=== PATIENT | female | born 1995 | race African-American/Black ===

== ENCOUNTER → 2020-02-25 | Outpatient (CLI) | payer OTHER ==
[2020-02-25 09:22] LABS: BASOPHILS % (AUTO) 1 % (0-1); EOSINOPHILS % (AUTO) 1 % (1-7); LYMPHOCYTES % (AUTO) 34 % (22-44); MEAN CORPUSCULAR HGB CONC 33.5 g/dL (32.4-35.8); MEAN PLATELET VOLUME 8.1 fL (7.4-10.4); MONOCYTES % (AUTO) 6 % (2-9); NEUTROPHILS % (AUTO) 58 % (42-75); PLATELET COUNT 266 x10^3/uL (130-400); RED BLOOD COUNT 4.31 x10^6/uL (3.82-5.3); RED CELL DISTRIBUTION WIDTH 12.6 % (9.6-15.2)
[2020-02-25 09:34] LABS: MD NO
== END | disposition home or self-care (01) ==
LOC: STAR 07:59
PROVIDERS: ATTEND Obstetrics & Gynecology
DX: Z01.812 Encounter for preprocedural laboratory examination (principal); R10.2 Pelvic and perineal pain; G89.29 Other chronic pain; N93.8 Other specified abnormal uterine and vaginal bleeding; Z20.828 Contact with and (suspected) exposure to other viral communicable diseases
CPT/HCPCS: 84703; 85025; 87635

== ENCOUNTER 2020-03-02 11:25 | Day surgery (SDC) | payer OTHER ==
[~2020-03-02] VITALS: Ht 172.7 cm; Wt 59.9 kg
[2020-03-02] MEDS ORDERED: BUPIVACAINE/PF 0.25% ONE (11:34)
[2020-03-02] MEDS ORDERED: EPINEPHRINE 1 MG/ML, 1ML ONE (11:35)
[2020-03-02] MEDS ORDERED: MISOPROSTOL 200 MCG TABLET ONE (11:35)
[2020-03-02] MEDS ORDERED: METHYLERGONOVINE 0.2 MG/ML IM ONE (11:35)
[2020-03-02] MEDS ORDERED: OXYTOCIN 10 UNITS/ML, 1ML ONE (11:35)
[2020-03-02] MEDS ORDERED: SILVER NITRATE STICK TP ONE (11:37)
[2020-03-02] MEDS ORDERED: METHYLENE BLUE 50 MG/10 ML AMP ONE (11:46)
[2020-03-02] MEDS ORDERED: GABAPENTIN 300 MG CAPSULE PO ONE (12:00)
[2020-03-02] MEDS ORDERED: PHENAZOPYRIDINE 200 MG TABLET PO ONE (12:00)
[2020-03-02] MEDS ORDERED: ACETAMINOPHEN 500 MG TABLET PO ONE (12:00)
[2020-03-02 12:04] VITALS: BP 122/84
[2020-03-02 12:12] LABS: HCG UR SG 1.034 (1.003-1.030)
[2020-03-02] MEDS: LACTATED RINGERS 1,000 ML IV SCH ×2 (12:24→16:10)
[2020-03-02] MEDS ORDERED: CHLORHEXIDINE 15 ML UDC MM ONE (12:30)
[2020-03-02] MEDS ORDERED: FENTANYL PF 250 MCG/5ML ONE (12:31)
[2020-03-02] MEDS ORDERED: MIDAZOLAM 1 MG/ML, 2ML ONE (12:31)
[2020-03-02] MEDS ORDERED: ONDANSETRON 2MG/ML, 2ML ONE (12:52)
[2020-03-02] MEDS ORDERED: PROPOFOL 10 MG/ML, 20ML ONE (12:52)
[2020-03-02] MEDS ORDERED: CEFAZOLIN 1,000 MG ONE (12:52)
[2020-03-02] MEDS ORDERED: ROCURONIUM 10 MG/ML,10ML ONE (12:52)
[2020-03-02] MEDS ORDERED: NEOSTIGMINE 1 MG/ML, 10ML ONE (12:52)
[2020-03-02] MEDS ORDERED: DEXAMETHASONE 4 MG/ML, 1ML ONE (12:52)
[2020-03-02] MEDS ORDERED: GLYCOPYRROLATE 0.2MG/1ML, 5ML ONE (12:52)
[2020-03-02] MEDS ORDERED: KETOROLAC 30 MG/1 ML IV ONE (13:30)
[2020-03-02] MEDS ORDERED: ACETAMINOPHEN 325 MG TABLET PO PRN ×2 (13:30)
[2020-03-02] MEDS ORDERED: KETOROLAC 30 MG/1 ML IV PRN (13:30)
[2020-03-02] MEDS ORDERED: PROMETHAZINE 25 MG/ML, 1ML IV PRN (13:30)
[2020-03-02] MEDS ORDERED: hydrALAzine 20 MG/ML, 1ML IV PRN (13:30)
[2020-03-02] MEDS ORDERED: OXYcodone 5 MG/5 ML ORAL.SOL UDC PO PRN ×2 (13:30→18:00)
[2020-03-02] MEDS ORDERED: PROMETHAZINE 25 MG/ML, 1ML IV ONE (13:30)
[2020-03-02] MEDS ORDERED: LABETALOL 5MG/ML, 20ML IV PRN (13:30)
[2020-03-02] MEDS ORDERED: ALBUTEROL SULFATE 2.5 MG/3 ML NPPB PRN (13:30)
[2020-03-02] MEDS ORDERED: MEPERIDINE/PF 25MG/0.5ML IVPush PRN (13:30)
[2020-03-02] MEDS ORDERED: OXYcodone 5 MG/5 ML ORAL.SOL UDC ONE (14:43)
[2020-03-02] MEDS ORDERED: FENTANYL PF 100 MCG/2ML ONE ×2 (14:43→15:23)
[2020-03-02] MEDS: FENTANYL PF 100 MCG/2ML IV PRN ×3 (14:44→15:26)
[2020-03-02] MEDS ORDERED: DIAZEPAM 5 MG/ML, 2ML ONE (14:51)
[2020-03-02] MEDS: DIAZEPAM 5 MG/ML, 2ML IVPush PRN ×2 (14:52→15:10)
[2020-03-02] MEDS ORDERED: KETOROLAC 30 MG/1 ML ONE (14:53)
[2020-03-02] MEDS ORDERED: HYDROmorphone 1 MG/ML, 1ML INJ ONE (15:18)
[2020-03-02] MEDS: HYDROmorphone 2 MG/ML, 1ML IVPush PRN ×2 (15:21→15:26)
[2020-03-02] MEDS ORDERED: MEPERIDINE/PF 25MG/ML,1ML ONE (15:23)
[2020-03-02] MEDS ORDERED: morphine SULFATE 10 MG/ML, 1ML ONE (17:50)
[2020-03-02] MEDS ORDERED: morphine SULFATE 10 MG/ML, 1ML IVPush PRN (18:00)
[2020-03-02] MEDS ORDERED: ONDANSETRON 2MG/ML, 2ML IVPush PRN (18:00)
[2020-03-02] MEDS ORDERED: IBUPROFEN 600 MG TABLET PO PRN (18:00)
== END 2020-03-02 20:50 | disposition home or self-care (01) ==
LOC: OUT 11:25
PROVIDERS: ATTEND Obstetrics & Gynecology
DX: N93.9 Abnormal uterine and vaginal bleeding, unspecified (principal); N80.3 Endometriosis of pelvic peritoneum; N73.6 Female pelvic peritoneal adhesions (postinfective); N94.10 Unspecified dyspareunia; Z79.1 Long term (current) use of non-steroidal anti-inflammatories (NSAID); Z82.49 Family history of ischemic heart disease and other diseases of the circulatory system; Z83.3 Family history of diabetes mellitus
CPT/HCPCS: 58120; 58350; 58662; 81025; 88305; J0171; J0690; J1100; J1170; J1885; J2175; J2250; J2270; J2405; J2704; J2710; J3010; J3360; J7120; Q9968; J2210; J2590

== ENCOUNTER 2020-08-16 21:06 | Emergency (ER) | payer OTHER ==
[~2020-08-16] VITALS: Ht 172.7 cm; Wt 64.6 kg
[2020-08-16] MEDS ORDERED: ONDANSETRON ODT 8 MG PO ONE (22:00)
[2020-08-16 22:52] LABS: BASOPHILS % (AUTO) 1 % (0-1); EOSINOPHILS % (AUTO) 3 % (1-7); LYMPHOCYTES % (AUTO) 24 % (22-44); MEAN CORPUSCULAR HEMOGLOBIN 30.6 pg (27.0-34.8); MEAN CORPUSCULAR HGB CONC 33.5 g/dL (32.4-35.8); MEAN PLATELET VOLUME 8.9 fL (7.4-10.4); MONOCYTES % (AUTO) 9 % (2-9); NEUTROPHILS % (AUTO) 63 % (42-75); PLATELET COUNT 285 x10^3/uL (130-400); RED BLOOD COUNT 5.24 x10^6/uL (3.82-5.3); RED CELL DISTRIBUTION WIDTH 12.3 % (9.6-15.2)
[2020-08-16 23:00] LABS: ALBUMIN 4.1 g/dL (3.4-5.0); ANION GAP 11 mmol/L (5-15); CALCIUM 9.1 mg/dL (8.5-10.1); CHLORIDE 101 mmol/L (98-107)
[2020-08-16 23:06] LABS: ALANINE AMINOTRANSFERASE 58 U/L (12-78); ALKALINE PHOSPHATASE 52 U/L (45-117); BILIRUBIN,TOTAL 1.2 mg/dL (0.2-1.0); CREATININE 1.12 mg/dL (0.55-1.02); TOTAL PROTEIN 9.6 g/dL (6.4-8.2)
--- NOTE | 2020-08-17 01:45 | NUR ---
MAJOR GENERAL: PT. TO ROOM FROM LOBBY AT THIS TIME.
[2020-08-17 01:50] VITALS: BP 133/85
--- NOTE | 2020-08-17 01:56 | NUR ---
Pt defered medication and COVID swab at this time, stating "I'm sorry for my attitude but I'm gonna be a bitch. I waited way to long to be seen since I left urgent care and if all you're going to do is some zofran and a swab then I'm going to be really pissed". Pt was requesting IV and fluids. This RN clarified to pt that these were just a few orders that were put in while she was waiting in the lobby and that the provider would have to evaluate her first. Pt provided warm blanket, VSS
[2020-08-17] MEDS ORDERED: SODIUM CHLORIDE 0.9% 1,000ML IVBOLUS ONE (02:00)
[2020-08-17] MEDS ORDERED: ONDANSETRON ODT 4 MG ONE (02:08)
[2020-08-17] MEDS ORDERED: ONDANSETRON ODT 8 MG ONE (02:11)
== END 2020-08-17 03:51 | disposition home or self-care (01) ==
LOC: ED 08-17 03:45
DX: R11.2 Nausea with vomiting, unspecified (principal); R19.7 Diarrhea, unspecified; R05 Cough; R50.9 Fever, unspecified
CPT/HCPCS: 36415; 71045; 80053; 84703; 85025; 96360; 96361; 99284; J7030; Q0162